=== PATIENT | male | born 1970 | race Two or more races ===

== ENCOUNTER 2021-07-21 07:39 | Inpatient (IN) | payer MEDICAID, OTHER ==
[~2021-07-21] VITALS: Ht 180.3 cm; Wt 116.9 kg
[2021-07-21] MEDS: SODIUM CHLORIDE 0.9% 1,000 ML IV SCH ×2 (02:30→17:49)
[2021-07-21] MEDS ORDERED: SODIUM CHLORIDE 0.9% 1,000 ML IV ONE ×2 (08:00→10:00)
[2021-07-21 08:37] LABS: Hematocrit 25.3 % (41.0-53.0); Hemoglobin 8.1 g/dL (13.5-17.5); Mean Corpuscular Hemoglobin 28.6 pg (28.0-32.0); Mean Corpuscular Hgb Conc. 31.8 g/dL (32.0-36.0); Mean Corpuscular Volume 89.8 fL (80.0-100.0); Red Blood Cells 2.82 10^6/uL (4.5-5.90); White Blood Cell 4.2 10^3/uL (4.4-10.8)
[2021-07-21 08:41] LABS: Red Cell Distribution Width 27.5 % (11.8-14.3)
[2021-07-21 08:42] LABS: Albumin 1.3 g/dL (3.4-5.0); Basophils % (manual) 0 (0.0-2.0); Blast Cells 0; Calcium 7.2 mg/dL (8.5-10.1); Eosinophils % (manual) 0 (0-7); Metamyelocytes % 0; Myelocytes % 0; Potassium 4.3 mmol/L (3.5-5.1); Promyelocytes % 0; Reactive Lymphocytes 0
[2021-07-21 08:47] LABS: BUN/Creatinine Ratio 29.1; Bilirubin, Total 4.1 mg/dL (0.2-1.0); Total Protein 6.9 g/dL (6.4-8.2)
[2021-07-21 10:02] LABS: Lactic Acid w/Reflex 6.6 mmol/L (0.4-2.0)
[2021-07-21] MEDS ORDERED: ALBUMIN 25% 100 ML IV ONE (10:15)
[2021-07-21] MEDS ORDERED: ONDANSETRON HCL 4 MG/2 ML VIAL IV ONE (10:30)
[2021-07-21] MEDS ORDERED: HYDROmorphone HCL 2 MG/ML VL IV ONE (10:30)
[2021-07-21] MEDS: NOREPINEPHRINE 8 MG/250ML KIT 250 ML IV SCH ×2 (10:35→22:00)
[2021-07-21 11:13] LABS: Band Neutrophils % (manual) 12; Lymphocytes % (manual) 4 (10.0-50.0); Monocytes % (manual) 11 (0-12)
[2021-07-21] MEDS ORDERED: metroNIDAZOLE 500MG/100ML 100 ML IV ONE (12:00)
[2021-07-21] MEDS ORDERED: PIPERACILLIN-TAZO 4.5GM 100 ML IV ONE (12:00)
[2021-07-21] MEDS ORDERED: ACETAMINOPHEN 325 MG TAB PO PRN (15:15)
[2021-07-21] MEDS ORDERED: NITROGLYCERIN 0.4 MG SL TAB SL PRN (15:15)
[2021-07-21] MEDS ORDERED: MORPHINE SULFATE INJECTION 2 MG/ML SYRG IV PRN (15:15)
[2021-07-21 16:09] LABS: Urine Bacteria NONE SEEN /hpf (None Seen); Urine Blood Negative /uL (Negative); Urine Specific Gravity 1.012 (1.001-1.035); Urine WBC 2 /hpf (0 - 3)
[2021-07-21] MEDS ORDERED: METO2.5T PO (17:01)
[2021-07-21] MEDS ORDERED: AMIO200T33 PO (17:22)
[2021-07-21] MEDS ORDERED: BUME2TAB5 PO (17:22)
[2021-07-21] MEDS ORDERED: MORP1TAB14 PO (17:22)
[2021-07-21] MEDS ORDERED: PROC10TA2 PO (17:22)
[2021-07-21] MEDS ORDERED: POTA10TA51 PO (17:22)
[2021-07-21] MEDS ORDERED: METO25TA93 PO (17:22)
[2021-07-21] MEDS ORDERED: OXY5T PO (17:22)
[2021-07-21] MEDS ORDERED: OMEP20TA PO (17:22)
[2021-07-21] MEDS: metroNIDAZOLE 500MG/100ML 100 ML IV SCH (20:00)
[2021-07-21] MEDS: CEFEPIME 1 GM in SODIUM CHL 0.9% 50 ML IV SCH (22:00)
[2021-07-22] VITALS (86 sets, daily range): BP systolic 83–120; BP diastolic 49–79
[2021-07-22] MEDS: metroNIDAZOLE 500MG/100ML 100 ML IV SCH ×3 (04:00→19:33)
[2021-07-22 06:54] LABS: Albumin 1.4 g/dL (3.4-5.0); BUN/Creatinine Ratio 33.2; Calcium 7.5 mg/dL (8.5-10.1); Potassium 3.9 mmol/L (3.5-5.1)
[2021-07-22 06:57] LABS: Total Protein 6.6 g/dL (6.4-8.2)
[2021-07-22 09:35] LABS: Basophils # (auto) 0.1 10 ^3/uL (0-0.2); Red Blood Cells 2.79 10^6/uL (4.5-5.90)
[2021-07-22 09:37] LABS: Basophils % (auto) 1.8 % (0.0-2.0); Eosinophils # (auto) 0.1 10 ^3/uL (0-0.8); Hematocrit 24.9 % (41.0-53.0); Lymphocytes # (auto) 0.4 10 ^3/uL (0.4-5.4); Lymphocytes % (auto) 6.4 % (10.0-50.0); Mean Corpuscular Hemoglobin 28.6 pg (28.0-32.0); Mean Corpuscular Hgb Conc. 32.1 g/dL (32.0-36.0); Mean Corpuscular Volume 89.2 fL (80.0-100.0); Monocytes # (auto) 0.8 10 ^3/uL (0-1.3); Monocytes % (auto) 14.3 % (0.0-12.0); Neutrophils # (auto) 4.2 10 ^3/uL (1.6-8.6); Neutrophils % (auto) 76.5 % (37.0-80.0); White Blood Cell 5.5 10^3/uL (4.4-10.8)
[2021-07-22 09:38] LABS: Red Cell Distribution Width 27.1 % (11.8-14.3)
[2021-07-22] MEDS: SODIUM CHLORIDE 0.9% 1,000 ML IV SCH ×2 (09:52→20:43)
[2021-07-22] MEDS: CEFEPIME 1 GM in SODIUM CHL 0.9% 50 ML IV SCH ×2 (10:54→21:30)
[2021-07-22] MEDS: MORPHINE SULFATE 4 MG/ML SYR/VIAL IV PRN ×3 (12:53→23:50)
[2021-07-22] MEDS: HYDROcodone-ACET 5/325MG TAB PO PRN (20:55)
[2021-07-23] VITALS (64 sets, daily range): BP systolic 89–121; BP diastolic 46–82
[2021-07-23] MEDS: SODIUM CHLORIDE 0.9% 1,000 ML IV SCH ×2 (00:35→08:55)
[2021-07-23] MEDS: HYDROcodone-ACET 5/325MG TAB PO PRN ×2 (02:46→14:00)
[2021-07-23] MEDS: metroNIDAZOLE 500MG/100ML 100 ML IV SCH ×3 (04:16→20:36)
[2021-07-23] MEDS: NOREPINEPHRINE 8 MG/250ML KIT 250 ML IV SCH (04:17)
[2021-07-23] MEDS: ONDANSETRON HCL 4 MG/2 ML VIAL IV PRN (09:00)
[2021-07-23] MEDS ORDERED: ALBUMIN 25% 100 ML IV ONE (09:30)
[2021-07-23] MEDS: CEFEPIME 1 GM in SODIUM CHL 0.9% 50 ML IV SCH ×2 (10:00→22:15)
[2021-07-23] MEDS: SODIUM BICARBONATE 50ML VIAL 50 ML in SOD CHL 0.45% 1,000 ML IV SCH (10:30)
[2021-07-23] MEDS: ALBUMIN 25% 100 ML IV SCH ×2 (10:45→18:47)
[2021-07-23 12:32] LABS: Albumin 1.3 g/dL (3.4-5.0); BUN/Creatinine Ratio 37.1; Calcium 7.8 mg/dL (8.5-10.1); Potassium 3.1 mmol/L (3.5-5.1)
[2021-07-23 12:34] LABS: Bilirubin, Total 4.3 mg/dL (0.2-1.0); Total Protein 6.6 g/dL (6.4-8.2)
[2021-07-23 13:20] LABS: Protein, Urine 67.5 mg/dL (0.0-11.9)
[2021-07-23] MEDS: MORPHINE SULFATE 4 MG/ML SYR/VIAL IV PRN (17:06)
[2021-07-23] MEDS ORDERED: POTASSIUM EFFERVESENT TAB 25 MEQ PO ONE (17:15)
[2021-07-23 19:50] LABS: Hemoglobin 8.1 g/dL (13.5-17.5); Red Blood Cells 2.84 10^6/uL (4.5-5.90)
[2021-07-23 19:51] LABS: Hematocrit 25.2 % (41.0-53.0); Mean Corpuscular Hemoglobin 28.6 pg (28.0-32.0); Mean Corpuscular Hgb Conc. 32.1 g/dL (32.0-36.0); Mean Corpuscular Volume 88.8 fL (80.0-100.0)
[2021-07-23 20:12] LABS: Red Cell Distribution Width 26.6 % (11.8-14.3)
[2021-07-23 20:13] LABS: Basophils % (manual) 0 (0.0-2.0); Blast Cells 0; Eosinophils % (manual) 0 (0-7); Metamyelocytes % 0; Myelocytes % 0; Promyelocytes % 0; Reactive Lymphocytes 0
[2021-07-23 22:27] LABS: Band Neutrophils % (manual) 3; Lymphocytes % (manual) 41 (10.0-50.0); Monocytes % (manual) 6 (0-12)
[2021-07-24] VITALS (43 sets, daily range): BP systolic 80–110; BP diastolic 44–74
[2021-07-24] MEDS: MORPHINE SULFATE 4 MG/ML SYR/VIAL IV PRN ×6 (00:20→23:33)
[2021-07-24] MEDS: FILGRASTIM(TBO) 480 MCG/0.8 ML SYRG SC SCH ×2 (00:21→22:00)
[2021-07-24] MEDS: NOREPINEPHRINE 8 MG/250ML KIT 250 ML IV SCH (01:53)
[2021-07-24] MEDS: ALBUMIN 25% 100 ML IV SCH (02:54)
[2021-07-24] MEDS: metroNIDAZOLE 500MG/100ML 100 ML IV SCH ×3 (04:26→20:08)
[2021-07-24] MEDS ORDERED: MORPHINE SULFATE INJECTION 2 MG/ML SYRG ONE (08:51)
[2021-07-24] MEDS ORDERED: MORPHINE SULFATE INJECTION 2 MG/ML SYRG IV ONE (09:00)
[2021-07-24 09:38] LABS: White Blood Cell 5.4 10^3/uL (4.4-10.8)
[2021-07-24] MEDS: CEFEPIME 1 GM in SODIUM CHL 0.9% 50 ML IV SCH ×2 (10:30→22:51)
[2021-07-24] MEDS: SODIUM BICARBONATE 50ML VIAL 50 ML in SOD CHL 0.45% 1,000 ML IV SCH ×2 (11:42→22:51)
[2021-07-24] MEDS: ONDANSETRON HCL 4 MG/2 ML VIAL IV PRN ×2 (20:07→23:33)
[2021-07-25] VITALS (73 sets, daily range): BP systolic 72–122; BP diastolic 40–75
[2021-07-25] MEDS: SODIUM BICARBONATE 50ML VIAL 50 ML in SOD CHL 0.45% 1,000 ML IV SCH ×4 (03:18→21:11)
[2021-07-25] MEDS: metroNIDAZOLE 500MG/100ML 100 ML IV SCH ×3 (03:46→21:13)
[2021-07-25] MEDS: MORPHINE SULFATE 4 MG/ML SYR/VIAL IV PRN ×5 (03:46→15:27)
[2021-07-25] MEDS: ONDANSETRON HCL 4 MG/2 ML VIAL IV PRN (06:48)
[2021-07-25] MEDS: CEFEPIME 1 GM in SODIUM CHL 0.9% 50 ML IV SCH ×2 (09:32→22:20)
[2021-07-25 09:47] LABS: Hematocrit 25.7 % (41.0-53.0); Hemoglobin 8.2 g/dL (13.5-17.5); Mean Corpuscular Hgb Conc. 31.8 g/dL (32.0-36.0); Mean Corpuscular Volume 87.9 fL (80.0-100.0); Red Blood Cells 2.93 10^6/uL (4.5-5.90); White Blood Cell 27.8 10^3/uL (4.4-10.8)
[2021-07-25 09:52] LABS: Red Cell Distribution Width 26.1 % (11.8-14.3)
[2021-07-25 09:54] LABS: Basophils % (manual) 0 (0.0-2.0); Blast Cells 0; Eosinophils % (manual) 0 (0-7); Metamyelocytes % 0; Myelocytes % 0; Promyelocytes % 0; Reactive Lymphocytes 0
[2021-07-25 09:58] LABS: BUN/Creatinine Ratio 42.8; Calcium 7.7 mg/dL (8.5-10.1)
[2021-07-25] MEDS: NOREPINEPHRINE 8 MG/250ML KIT 250 ML IV SCH (10:00)
[2021-07-25 10:50] LABS: Potassium 2.6 mmol/L (3.5-5.1)
[2021-07-25 11:39] LABS: Band Neutrophils % (manual) 8; Lymphocytes % (manual) 5 (10.0-50.0); Monocytes % (manual) 4 (0-12)
[2021-07-25 11:42] LABS: BUN/Creatinine Ratio 40.2; Calcium 7.9 mg/dL (8.5-10.1)
[2021-07-25 11:49] LABS: Potassium 2.6 mmol/L (3.5-5.1)
[2021-07-25 11:57] LABS: Hematocrit 25.4 % (41.0-53.0); Hemoglobin 7.9 g/dL (13.5-17.5); Mean Corpuscular Hemoglobin 27.6 pg (28.0-32.0); Mean Corpuscular Hgb Conc. 31.1 g/dL (32.0-36.0); Mean Corpuscular Volume 88.7 fL (80.0-100.0); Red Blood Cells 2.87 10^6/uL (4.5-5.90); White Blood Cell 28.2 10^3/uL (4.4-10.8)
[2021-07-25 11:59] LABS: Red Cell Distribution Width 26.2 % (11.8-14.3)
[2021-07-25 12:01] LABS: Basophils % (manual) 0 (0.0-2.0); Blast Cells 0; Eosinophils % (manual) 0 (0-7); Metamyelocytes % 0; Myelocytes % 0; Promyelocytes % 0; Reactive Lymphocytes 0
[2021-07-25] MEDS: POTASSIUM CHL 10MEQ/50ML 50 ML IV SCH ×6 (12:15→21:12)
[2021-07-25 15:06] LABS: Band Neutrophils % (manual) 8; Lymphocytes % (manual) 1 (10.0-50.0); Monocytes % (manual) 4 (0-12)
[2021-07-25] MEDS: HYDROmorphone HCL 2 MG/ML VL IV PRN ×2 (17:30→21:15)
[2021-07-26] VITALS (72 sets, daily range): BP systolic 83–112; BP diastolic 49–86
[2021-07-26] MEDS: HYDROmorphone HCL 2 MG/ML VL IV PRN ×5 (00:33→14:58)
[2021-07-26] MEDS: NOREPINEPHRINE 8 MG/250ML KIT 250 ML IV SCH (03:06)
[2021-07-26] MEDS: metroNIDAZOLE 500MG/100ML 100 ML IV SCH ×3 (03:33→22:15)
[2021-07-26] MEDS: ONDANSETRON HCL 4 MG/2 ML VIAL IV PRN ×2 (03:46→17:01)
[2021-07-26 04:05] LABS: Albumin 1.4 g/dL (3.4-5.0); Calcium 7.6 mg/dL (8.5-10.1)
[2021-07-26 04:10] LABS: Bilirubin, Total 5.7 mg/dL (0.2-1.0); Total Protein 6.1 g/dL (6.4-8.2)
[2021-07-26 04:40] LABS: Potassium 2.9 mmol/L (3.5-5.1)
[2021-07-26 05:51] LABS: Hematocrit 24.5 % (41.0-53.0); Hemoglobin 7.8 g/dL (13.5-17.5); Mean Corpuscular Hemoglobin 28.4 pg (28.0-32.0); Mean Corpuscular Hgb Conc. 31.7 g/dL (32.0-36.0); Mean Corpuscular Volume 89.7 fL (80.0-100.0); Red Blood Cells 2.73 10^6/uL (4.5-5.90)
[2021-07-26 05:52] LABS: Red Cell Distribution Width 25.6 % (11.8-14.3)
[2021-07-26 05:55] LABS: Basophils % (manual) 0 (0.0-2.0); Blast Cells 0; Eosinophils % (manual) 0 (0-7); Metamyelocytes % 0; Myelocytes % 0; Promyelocytes % 0; Reactive Lymphocytes 0
[2021-07-26 06:46] LABS: Band Neutrophils % (manual) 16; Lymphocytes % (manual) 7 (10.0-50.0); Monocytes % (manual) 4 (0-12)
[2021-07-26] MEDS: POTASSIUM CHL 10MEQ/50ML 50 ML IV SCH ×5 (08:19→11:19)
[2021-07-26] MEDS: CEFEPIME 1 GM in SODIUM CHL 0.9% 50 ML IV SCH ×2 (09:33→22:27)
[2021-07-26] MEDS ORDERED: MORPHINE SULFATE 4 MG/ML SYR/VIAL IV PRN (16:45)
[2021-07-26] MEDS ORDERED: MORPHINE SULFATE INJECTION 2 MG/ML SYRG IV PRN (16:45)
[2021-07-26] MEDS: MORPHINE SULFATE 4 MG/ML SYR/VIAL IV PRN ×2 (17:01→22:29)
[2021-07-26] MEDS: MIDODRINE HCL 10 MG TAB PO SCH (17:40)
[2021-07-26 19:20] LABS: Magnesium 1.7 mg/dL (1.6-2.6); Potassium 3.3 mmol/L (3.5-5.1)
[2021-07-26] MEDS ORDERED: SENNA 8.6 MG TAB PO SCH (22:00)
[2021-07-26] MEDS: SODIUM BICARBONATE 50ML VIAL 50 ML in SOD CHL 0.45% 1,000 ML IV SCH (22:14)
[2021-07-26] MEDS: METOCLOPRAMIDE HCL 5MG/ml INJ 2ml VIAL IV SCH (22:16)
[2021-07-26] MEDS: MORPHINE SULF 15mg ER tab PO SCH (22:16)
[2021-07-27] VITALS (24 sets, daily range): BP systolic 89–115; BP diastolic 56–76
[2021-07-27] MEDS: MORPHINE SULFATE 4 MG/ML SYR/VIAL IV PRN ×2 (03:19→18:34)
[2021-07-27 04:07] LABS: Calcium 7.6 mg/dL (8.5-10.1); Magnesium 1.7 mg/dL (1.6-2.6)
[2021-07-27 04:09] LABS: BUN/Creatinine Ratio 36.9
[2021-07-27] MEDS: ONDANSETRON HCL 4 MG/2 ML VIAL IV PRN ×2 (04:19→08:29)
[2021-07-27] MEDS: metroNIDAZOLE 500MG/100ML 100 ML IV SCH ×3 (04:23→20:20)
[2021-07-27] MEDS: SODIUM BICARBONATE 50ML VIAL 50 ML in SOD CHL 0.45% 1,000 ML IV SCH ×2 (04:35→12:30)
[2021-07-27 04:48] LABS: Potassium 2.9 mmol/L (3.5-5.1)
[2021-07-27] MEDS: MORPHINE SULF 15mg ER tab PO SCH ×3 (05:44→21:56)
[2021-07-27] MEDS: METOCLOPRAMIDE HCL 5MG/ml INJ 2ml VIAL IV SCH ×3 (05:44→21:57)
[2021-07-27] MEDS: MIDODRINE HCL 10 MG TAB PO SCH ×3 (05:45→18:22)
[2021-07-27] MEDS: MAGNESIUM SULFATE 1GM/100ML 100 ML IV SCH ×3 (06:17→08:17)
[2021-07-27] MEDS: POTASSIUM CHL 10MEQ/50ML 50 ML IV SCH ×4 (06:17→09:00)
[2021-07-27] MEDS: MORPHINE SULFATE INJECTION 2 MG/ML SYRG IV PRN ×2 (08:12→16:47)
[2021-07-27] MEDS: CEFEPIME 1 GM in SODIUM CHL 0.9% 50 ML IV SCH ×2 (10:00→18:22)
[2021-07-27] MEDS: NOREPINEPHRINE 8 MG/250ML KIT 250 ML IV SCH (10:00)
[2021-07-27 12:08] LABS: Magnesium 2.1 mg/dL (1.6-2.6); Potassium 3.4 mmol/L (3.5-5.1)
[2021-07-27] MEDS: LACTULOSE 20Gm/30ML SOLN PO SCH (21:57)
[2021-07-28] MEDS: MORPHINE SULFATE 4 MG/ML SYR/VIAL IV PRN ×2 (00:23→20:49)
[2021-07-28] MEDS: SODIUM BICARBONATE 50ML VIAL 50 ML in SOD CHL 0.45% 1,000 ML IV SCH ×2 (01:59→16:30)
[2021-07-28] MEDS: CEFEPIME 1 GM in SODIUM CHL 0.9% 50 ML IV SCH ×3 (01:59→17:12)
[2021-07-28] MEDS: MORPHINE SULFATE INJECTION 2 MG/ML SYRG IV PRN ×4 (02:52→23:17)
[2021-07-28] MEDS: metroNIDAZOLE 500MG/100ML 100 ML IV SCH ×3 (04:24→20:28)
[2021-07-28 04:37] VITALS: BP 115/71
[2021-07-28] MEDS: METOCLOPRAMIDE HCL 5MG/ml INJ 2ml VIAL IV SCH ×3 (06:14→22:18)
[2021-07-28] MEDS: MIDODRINE HCL 10 MG TAB PO SCH ×3 (06:14→17:13)
[2021-07-28] MEDS: MORPHINE SULF 15mg ER tab PO SCH ×3 (06:15→22:20)
[2021-07-28 08:00] VITALS: BP 94/62
[2021-07-28] MEDS: ONDANSETRON HCL 4 MG/2 ML VIAL IV PRN (08:49)
[2021-07-28] MEDS: LACTULOSE 20Gm/30ML SOLN PO SCH ×2 (09:01→22:18)
[2021-07-28 13:00] VITALS: BP 103/69
[2021-07-28 16:31] VITALS: BP 106/61
[2021-07-28 22:00] VITALS: BP 108/74
[2021-07-29] MEDS: CEFEPIME 1 GM in SODIUM CHL 0.9% 50 ML IV SCH ×2 (02:54→08:59)
[2021-07-29] MEDS: metroNIDAZOLE 500MG/100ML 100 ML IV SCH ×2 (04:40→12:23)
[2021-07-29 05:00] VITALS: BP 114/75
[2021-07-29] MEDS: METOCLOPRAMIDE HCL 5MG/ml INJ 2ml VIAL IV SCH ×2 (05:25→15:00)
[2021-07-29] MEDS: MORPHINE SULFATE INJECTION 2 MG/ML SYRG IV PRN ×3 (05:26→12:23)
[2021-07-29] MEDS: MORPHINE SULF 15mg ER tab PO SCH ×2 (06:18→15:00)
[2021-07-29] MEDS: MIDODRINE HCL 10 MG TAB PO SCH ×2 (06:20→12:24)
[2021-07-29] MEDS: SODIUM BICARBONATE 50ML VIAL 50 ML in SOD CHL 0.45% 1,000 ML IV SCH (06:20)
[2021-07-29 08:00] VITALS: BP 100/67
[2021-07-29] MEDS: LACTULOSE 20Gm/30ML SOLN PO SCH (08:59)
[2021-07-29] MEDS: ONDANSETRON HCL 4 MG/2 ML VIAL IV PRN (09:37)
[2021-07-29 10:40] LABS: Potassium 3.4 mmol/L (3.5-5.1)
[2021-07-29 10:44] LABS: BUN/Creatinine Ratio 27.6; Calcium 7.9 mg/dL (8.5-10.1)
[2021-07-29 12:00] VITALS: BP 104/74
[2021-07-29 14:40] VITALS: BP 104/74
== END 2021-07-29 16:28 | disposition hospice, home (50) | DRG 720 ==
LOC: ER 07:39 → OVERFLOW 15:11 → ICU WEST 23:44 → TELE-CENTR 07-27 15:45
PROVIDERS: ADMIT Internal Medicine; ATTEND Internal Medicine
DX: A41.51 Sepsis due to Escherichia coli [E. coli] (principal); R57.1 Hypovolemic shock; D61.818 Other pancytopenia; E43 Unspecified severe protein-calorie malnutrition; N17.9 Acute kidney failure, unspecified; C77.2 Secondary and unspecified malignant neoplasm of intra-abdominal lymph nodes; R65.21 Severe sepsis with septic shock; D63.8 Anemia in other chronic diseases classified elsewhere; E88.09 Other disorders of plasma-protein metabolism, not elsewhere classified; C18.9 Malignant neoplasm of colon, unspecified; C78.7 Secondary malignant neoplasm of liver and intrahepatic bile duct; D50.9 Iron deficiency anemia, unspecified; E87.6 Hypokalemia; Z93.3 Colostomy status; N18.9 Chronic kidney disease, unspecified; Z66 Do not resuscitate; E11.22 Type 2 diabetes mellitus with diabetic chronic kidney disease; I12.9 Hypertensive chronic kidney disease with stage 1 through stage 4 chronic kidney disease, or unspecified chronic kidney disease; K74.60 Unspecified cirrhosis of liver; Z20.822 Contact with and (suspected) exposure to COVID-19; Z92.21 Personal history of antineoplastic chemotherapy; Z79.899 Other long term (current) drug therapy; Z68.21 Body mass index [BMI] 21.0-21.9, adult; Z91.018 Allergy to other foods
CPT/HCPCS: 36415; 71045; 74176; 76775; 80048; 80053; 81001; 82140; 82306; 82570; 83605; 83735; 83970; 84100; 84132; 84156; 84300; 84484; 85007; 85025; 85027; 86850; 86900; 86901; 87040; 87077; 87081; 87186; 87426; 93005; 97110; 97163; 97530; 99291; G0378; J1447; J2405; J2543; J3490; P9047